=== PATIENT | male | born 1965 | race Caucasian/White ===

== ENCOUNTER 2018-07-14 12:24 | Emergency (ER) | payer MEDICAID ==
[~2018-07-14] VITALS: Ht 170.2 cm; Wt 77.3 kg
[~2018-07-14 12:24] MED LIST: IBUP-1574 PO; NO HOME MEDS; PRED20TA PO
[2018-07-14 12:46] VITALS: BP 174/83
--- NOTE | 2018-07-14 15:22 | NUR ---
PT'S GIRLFRIEND WAS DISCHARGED SO PT. LEFT WITH HER. DID NOT WAIT TO BE SEEN
== END 2018-07-14 15:27 | disposition left against medical advice (07) ==
LOC: ER 12:25
DX: S70.362A Insect bite (nonvenomous), left thigh, initial encounter (principal); Z53.21 Procedure and treatment not carried out due to patient leaving prior to being seen by health care provider; W57.XXXA Bitten or stung by nonvenomous insect and other nonvenomous arthropods, initial encounter; Y93.89 Activity, other specified; Y92.89 Other specified places as the place of occurrence of the external cause; Y99.8 Other external cause status